=== PATIENT | female | born 1975 | race Hispanic/Latino ===

== ENCOUNTER 2019-03-24 03:17 | Emergency (ER) | payer BC ==
[2019-03-24 03:36] LABS: APPEARANCE,URINE Clear (CLEAR); BILIRUBIN,URINE Negative (NEGATIVE); COLOR,URINE Yellow (YELLOW); GLUCOSE, URINE (UA) Negative (NEGATIVE); KETONES,URINE Negative (NEGATIVE); LEUKOCYTE ESTERASE ,URINE Small (NEGATIVE); NITRATE,URINE Negative (NEGATIVE); OCCULT BLOOD,URINE Negative (NEGATIVE); PROTEIN,URINE Negative (NEGATIVE); UROBILINOGEN,URINE 0.2 mg/dL (0.2-1.0)
[2019-03-24] MEDS ORDERED: SODIUM CHLORIDE 0.9% 500ML 500 ML IV ONE (03:53)
[2019-03-24] MEDS ORDERED: DiphenhydrAMINE HCL 50 MG/ML VIAL ONE (03:55)
[2019-03-24] MEDS ORDERED: PROCHLORPERAZINE EDISYLATE 10 MG/2 ML VIAL ONE (03:55)
[2019-03-24 03:58] LABS: BASOPHILS % (AUTO) 0.7 % (0.0-5.0); EOSINOPHILS % (AUTO) 0.6 % (0.0-8.0); HEMATOCRIT 29.7 % (36-48); LYMPHOCYTES % (AUTO) 14.4 % (21.0-51.0); MEAN CORPUSCULAR HEMOGLOBIN 23.5 pg (27.0-33.0); MEAN CORPUSCULAR HGB CONC 30.6 g/dL (32.0-36.0); MEAN CORPUSCULAR VOLUME 76.5 fL (79-99); MONOCYTES % (AUTO) 5.7 % (3.0-13.0); NEUTROPHILS % (AUTO) 78.3 % (40.0-77.0); PLATELET COUNT (AUTO) 242 K/uL (130-400); RED BLOOD CELL COUNT(AUTO) 3.88 MIL/uL (4.00-5.50); WHITE BLOOD COUNT (AUTO) 6.7 K/uL (4.8-10.8)
[2019-03-24 03:58] LABS: BACTERIA,URINE Rare /HPF (None Seen); MUCUS,URINE Few LPF (None Seen); RBC,URINE None Seen /HPF (0-1); SQUAMOUS EPITHELIAL CELL,UR Few /HPF (0-2)
[2019-03-24 04:08] LABS: POTASSIUM 4.2 mmol/L (3.5-5.1)
[2019-03-24] MEDS ORDERED: LORAZEPAM 2 MG/ML 1 ML VIAL ONE (04:12)
[2019-03-24 04:13] LABS: ALBUMIN 3.7 g/dL (3.5-5.0); BILIRUBIN,TOTAL 0.3 mg/dL (0.2-1.0); TOTAL PROTEIN, SERUM 7.2 g/dL (6.0-8.3)
[2019-03-24] MEDS ORDERED: SODIUM CHLORIDE 0.9% 1000ML 1,000 ML IV ONE (05:31)
[2019-03-24] MEDS ORDERED: MECLIZINE HCL 25 MG TABLET ONE (05:45)
[2019-03-24] MEDS ORDERED: KETOROLAC TROMETHAMINE 15MG/ML ONE (06:36)
== END 2019-03-24 07:24 | disposition home or self-care (01) ==
LOC: EDH 03:17
DX: H81.10 Benign paroxysmal vertigo, unspecified ear (principal); G43.909 Migraine, unspecified, not intractable, without status migrainosus
CPT/HCPCS: 36415; 70450; 80053; 81001; 81025; 85025; 93005; 96361; 96374; 96375; 99285; J0780; J1200; J1885; J2060; J7030; J7040